=== PATIENT | female | born 1995 | race Caucasian/White ===

== ENCOUNTER 2020-04-14 21:48 | Outpatient (CLI) | payer OTHER ==
[~2020-04-14 21:48] MED LIST: MACROBID 100 M100 MG PO
[2020-04-18] MEDS ORDERED: DOCUSATE SODIU100 MG PO (13:48)
[2020-04-18] MEDS ORDERED: IBUPROFEN800 MG PO (13:48)
[2020-04-18] MEDS ORDERED: HYDROCODON-ACE1 EAC4 PO (13:48)
== END 2020-04-14 22:17 | disposition home or self-care (01) ==
LOC: GENOP 21:48
DX: O62.9 Abnormality of forces of labor, unspecified (principal); Z3A.38 38 weeks gestation of pregnancy
CPT/HCPCS: G0463

== ENCOUNTER 2020-04-18 05:28 | Inpatient (IN) | payer OTHER ==
[~2020-04-18] VITALS: Ht 175.3 cm; Wt 130.6 kg
[2020-04-18 06:30] LABS: HEMOGLOBIN 11.6 gm/dl (12.3-15.3); RED BLOOD COUNT 3.92 M/UL (4.00-5.10); WHITE BLOOD COUNT 12.6 K/UL (4.5-11.0)
[2020-04-18] MEDS ORDERED: LEVOTHYROXINE100 MCG PO (06:52)
[2020-04-18] MEDS ORDERED: PRENATAL VITAM1 EAC8 PO (06:53)
[2020-04-18] MEDS ORDERED: DOCUSATE SODIU100 MG PO (13:48)
[2020-04-18] MEDS ORDERED: IBUPROFEN800 MG PO (13:48)
[2020-04-18] MEDS ORDERED: HYDROCODON-ACE1 EAC4 PO (13:48)
[2020-04-19 06:23] LABS: HEMOGLOBIN 11.6 gm/dl (12.3-15.3)
== END 2020-04-20 14:50 | disposition home or self-care (01) | DRG 794 ==
LOC: OB 05:28
PROVIDERS: ADMIT Obstetrics & Gynecology
PROC: 4A1HX4Z Monitoring of Products of Conception, Cardiac Electrical Activity, External Approach (ICD-10-PCS; principal; 2020-04-18)
PROC: 10E0XZZ Delivery of Products of Conception, External Approach (ICD-10-PCS; 2020-04-18)
PROC: 0HQ9XZZ Repair Perineum Skin, External Approach (ICD-10-PCS; 2020-04-18)
PROC: 10907ZC Drainage of Amniotic Fluid, Therapeutic from Products of Conception, Via Natural or Artificial Opening (ICD-10-PCS; 2020-04-18)
DX: P08.1 Other heavy for gestational age newborn (principal); O99.824 Streptococcus B carrier state complicating childbirth; Z3A.39 39 weeks gestation of pregnancy; Z37.0 Single live birth; O70.0 First degree perineal laceration during delivery; O99.214 Obesity complicating childbirth; E66.9 Obesity, unspecified; Z20.822 Contact with and (suspected) exposure to COVID-19; O99.334 Smoking (tobacco) complicating childbirth; F17.210 Nicotine dependence, cigarettes, uncomplicated; O99.284 Endocrine, nutritional and metabolic diseases complicating childbirth; E03.9 Hypothyroidism, unspecified; E28.2 Polycystic ovarian syndrome; F32.9 Major depressive disorder, single episode, unspecified; J45.909 Unspecified asthma, uncomplicated; Z28.21 Immunization not carried out because of patient refusal
CPT/HCPCS: 51702; 80307; 81001; 82800; 85014; 85018; 85025; 90471; 90715; J2210; J2590; J2795; J3370; J7070; J7120

== ENCOUNTER 2020-12-09 23:13 | Emergency (ER) | payer OTHER ==
[~2020-12-09 23:13] MED LIST changes: +DOCUSATE SODIU100 MG PO; +HYDROCODON-ACE1 EAC4 PO; +IBUPROFEN800 MG PO; +LEVOTHYROXINE100 MCG PO; +PRENATAL VITAM1 EAC8 PO
[2020-12-10 01:36] LABS: HEMOGLOBIN 11.7 gm/dl (12.3-15.3); RED BLOOD COUNT 3.95 M/UL (4.00-5.10); WHITE BLOOD COUNT 10.8 K/UL (4.5-11.0)
[2020-12-10 01:57] LABS: BUN/CREATININE RATIO 15 (0-10)
== END 2020-12-10 04:43 | disposition home or self-care (01) ==
LOC: ER1 23:13
PROVIDERS: Family Medicine
DX: R10.9 Unspecified abdominal pain (principal); F17.200 Nicotine dependence, unspecified, uncomplicated
CPT/HCPCS: 80053; 83690; 84703; 85025; 99284; Q9967

== ENCOUNTER 2021-02-21 01:45 | Emergency (ER) | payer OTHER ==
[2021-02-21 03:20] LABS: HEMOGLOBIN 13.5 gm/dl (12.3-15.3); RED BLOOD COUNT 4.56 M/UL (4.00-5.10); WHITE BLOOD COUNT 13.2 K/UL (4.5-11.0)
[2021-02-21 03:38] LABS: BUN/CREATININE RATIO 15 (0-10)
== END 2021-02-21 09:22 | disposition home or self-care (01) ==
LOC: ER1 01:45
PROVIDERS: Student in an Organized Health Care Education/Training Program
DX: O99.891 Other specified diseases and conditions complicating pregnancy (principal); M54.50 Low back pain, unspecified; O99.331 Smoking (tobacco) complicating pregnancy, first trimester; F17.210 Nicotine dependence, cigarettes, uncomplicated; Z88.1 Allergy status to other antibiotic agents; Z3A.01 Less than 8 weeks gestation of pregnancy
CPT/HCPCS: 76817; 80053; 81001; 83690; 84702; 84703; 85025; 99284